=== PATIENT | male | born 1970 | race Caucasian/White ===

== ENCOUNTER → 2019-10-10 | Outpatient (CLI) | payer OTHER ==
[~2019-10-10] MED LIST: HYDR120S6 PO; OMEP-110 PO
== END | disposition home or self-care (01) ==
LOC: RAD 11:42
PROVIDERS: ATTEND Surgery
DX: Z11.1 Encounter for screening for respiratory tuberculosis (principal); R07.9 Chest pain, unspecified
CPT/HCPCS: 71046